=== PATIENT | female | born 1940 | race Hispanic/Latino ===

== ENCOUNTER 2016-08-20 11:05 | Day surgery (SDC) | payer MEDICARE ==
[2016-08-07 11:52] VITALS: BMI 26.5
--- NOTE | 2016-08-20 12:11 | CP.SDSHP ---
Same Day Surgery H & P - History Proposed Procedure: Left foot 2nd and 3rd digit hammertoe repair with right hallux nail avulsion Pre-Op Diagnosis: Left foot hammertoe deformity with plantarflexed 2nd metatarsal head and right hallux ingrown toenail. - Previous Medical/Surgical History Cardiac: Hypertension Endocrine/Metabolic: Thyroid Disease (Hypothyroid), Obesity, Other ( Hyperlipedemia ) Pain: 4.Moderate Pain - Allergies Allergies: Allergies prednisolone Allergy (Verified 08/20/16 11:43) PALPITATIONS - Current Medications Current Medications: See Medical reconciliation - Physical Exam Vital Signs: Vital Signs 08/20/16 11:58 Temperature 98.2 F Pulse Rate 70 Respiratory 18 Rate Blood Pressure 139/72 O2 Sat by Pulse 95 Oximetry Mental Status: Alert & Oriented x3 Neuro: WNL Heart: WNL Lungs: WNL GI: WNL - {Optional Preform as Required} Integument: WNL Ortho: Other (Left 2nd and 3rd digit semi-reducible hammertoe PIPJ contractures , and plantar 2nd metatarsal prominence with callous formation. Right tender medial hallux border tender incurvating nail plate.) - Impression Impression: Pt was seen and examined in SDS. Pt NPO status was confirmed. All Pre-op testing and clearance was in the chart. Pt has exhausted all conservative treatment at this time and is opting for surgical intervention. Pt was explained procedure and post-operative course. All pt's questions were answered to satisfaction. No guarantees were made. Pt understands all risks, benefits and complications of procedure. Pt will follow-up with Dr. Mcneil Pt. Evaluated Today:Candidate for Anesthesia & Procedure: Yes - Date & Time Date: 08/20/16 Time: 12:12 Short Stay Discharge - Short Stay Discharge Admitting Diagnosis/Reason for Visit: M20.42 L60.0 M77.42 Referrals: Julius Mcneil DPM [Primary Care Provider] - Follow-up: Follow-up in 1 week. Instructions: RICE Therapy (GEN) Additional Instructions (Diet, Activity): --Patient in good/stable condition for discharge home. Pt to resume medications per medical reconciliation. Resume regular diet. Please keep dressing clean, dry, & intact to surgical site, use plastic bag over bandage for showering, wear post op shoe at all times when ambulating, call clinic if you see signs of infection (redness, swelling, malodor), please make an appointment to see Dr. Mcneil in office within 1 week for post-op check. Progress Note/Discharge Note with Instructions: - Patient evaluated bedside in recovery s/p surgical procedure. - After surgical procedure patient in NAD - (+) Void, (+) Appetite - Capillary refill time <3s and NVSI intact. - Patient denies complaints at this time - Post operative instructions and plan of care explained to patient at length. - Pt. acknowledges understanding. - Patient stable for DC per podiatric surgery
--- NOTE | 2016-08-20 12:16 | CP.PCM.PN ---
Subjective - Date & Time of Evaluation Date of Evaluation: 08/20/16 Time of Evaluation: 12:13 - Subjective Subjective: 76 female patient was seen at bedside for left painful hammertoe deformity and right painful ingrown toenails. Pt has been NPO since yesterday evening at 10pm. Pr denies recent f.c.n.v.c.sob. Objective - Vital Signs/Intake and Output Vital Signs (last 24 hours): Temp Pulse Resp BP Pulse Ox 98.2 F 70 18 139/72 95 08/20/16 11:58 08/20/16 11:58 08/20/16 11:58 08/20/16 11:58 08/20/16 11:58 - Constitutional Appears: Well, Non-toxic, No Acute Distress - Extremities Exam Additional comments: Lower extremity focused. Neuro-vascular status intact bilaterally. Pedal pulses fully palpable b Left 2nd and 3rd digit partially reducible hammertoe PIPJ contractures, and plantar 2nd metatarsal prominence with callous formation. Right hallux lateral border tender incurvation nail plate - Neurological Exam Neurological Exam: Alert, Awake, Oriented x3 - Psychiatric Exam Psychiatric exam: Normal Affect, Normal Mood - Skin Skin Exam: Intact, Normal Color, Warm Assessment and Plan - Assessment and Plan (Free Text) Assessment: 76 year old with left 2nd digit plantar plate rupture, 2nd and 3rd digit PIPJ hammertoe contracture, and right hallux onychocryptosis. Plan: Pt was seen and examined in SDS Pt NPO status was confirmed All Pre-op testing and clearance was in the chart Pt has exhausted all conservative treatment at this time and is opting for surgical intervention Pt was explained procedure and post-operative course All pt's questions were answered to satisfaction No guarantees were made Pt understands all risks, benefits and complications of procedure Pt will follow-up with Dr. Mcneil
[2016-08-20] MEDS ORDERED: ceFAZolin 1 GM in Sodium Chloride 0.9% 100 ML IVPB ONE (12:19)
[2016-08-20] MEDS ORDERED: Propofol 10 mg/ml Inj (20 ML) ONE ×2 (13:10→13:28)
[2016-08-20] MEDS ORDERED: Midazolam 2 MG/2 ML VIAL ONE (13:10)
[2016-08-20] MEDS ORDERED: Bupivacaine 0.5% Inj(30mL) IJ ONE (13:44)
[2016-08-20] MEDS ORDERED: Bupivacaine 0.5% Inj(30mL) ONE (14:32)
[2016-08-20] MEDS ORDERED: Lactated Ringer's 1,000 ML IV ONE (14:51)
[2016-08-20] MEDS ORDERED: Oxycodone/Acetaminophen 5/325 mg Tab PO PRN ×2 (14:53)
[2016-08-20] MEDS ORDERED: HYDROmorphone 0.5 mg/0.5 ml ISec IVP PRN (14:56)
--- NOTE | 2016-08-20 14:59 | PCM.SURG1 ---
Surgeon's Initial Post Op Note - Surgeon's Notes Surgeon: Dr. Mcneil Dehydrogenation Converter Operator: Dr. Ocampo PGY-1 Type of Anesthesia: IV Sedation, Local Anesthesia Administered By: Dr. Munson Pre-Operative Diagnosis: left foot painful hammertoe two, three with chronic pain submetatarsal 2, chronic ingrown toenail right great toe medial border Operative Findings: see operative report Post-Operative Diagnosis: same Operation Performed: left foot surgical intervention of hammertoes two and three with cutting and removal of soft tissue and bone including second metatarsal head resection and third metararsal extensor tendon tenotomy. right foot permanent ingrown nail removal medial hallux nail border Specimen/Specimens Removed: none Estimated Blood Loss: EBL {In ML}: 10 Blood Products Given: N/A Drains Used: No Drains Post-Op Condition: Good Date of Surgery/Procedure: 08/20/16 Time of Surgery/Procedure: 13:15
[2016-08-20 16:15] VITALS: RESP 18
[2016-08-20 17:09] VITALS: O2SAT 97
[2016-08-20 18:16] VITALS: BP 128/65; PULSE 79; TEMP 97.8
--- NOTE | 2016-08-20 18:21 | OP ---
PROCEDURE DATE: 08/20/2016 SURGEON: Dr. Mcneil. FARO DEALER: Dr. Ocampo, PGY-1. METALLURGIST PROCESS: Dr. Munson. ANESTHESIA: IV sedation plus local. PREOPERATIVE DIAGNOSES: Left foot painful hammertoe deformities of digits 2 and 3 with chronic pain submetatarsal 2; chronic ingrown toenail, right hallux medial border. POSTOPERATIVE DIAGNOSES: Left foot painful hammertoe deformities of digits 2 and 3 with chronic pain submetatarsal 2; chronic ingrown toenail, right hallux medial border. PROCEDURES PERFORMED: Left foot second proximal interphalangeal joint arthroplasty with second metatarsal head resection, left foot third digit proximal interphalangeal joint arthroplasty with percutaneous extensor tendon tenotomy, right foot permanent removal of ingrown nail medial hallux nail border. INDICATIONS: The patient is a 76-year-old female with the above diagnosis. The patient has exhausted all conservative treatment at this time and is now requesting surgical intervention. The patient signed the consent after careful explanation of risks, benefits, complications and alternatives for surgical procedures. No guarantees were given nor implied. 1 gram of Ancef IV was given to the patient prior to the procedure. NPO status was confirmed prior to taking the patient to the operating room. PREPARATION: The patient was brought to the operating room and placed on the operating room table in the supine position. A well-padded pneumatic ankle tourniquet was then applied to the left ankle. After induction of IV sedation, the patient received a total of 20 cc consisting of 0.5% Marcaine plain in local block fashion to the feet (9 mL to the right foot, 11 mL filled to the left foot). Once local anesthesia was achieved, a freer elevator was used to free the medial and proximal nail border of the right hallux. Next, using a bone cutter and hemostat, the medial aspect of the hallux nail was removed from its entirety and passed from the operative field. Next, the left and right foot were then prepped and draped in usual sterile manner. The ankle tourniquet was then inflated to 250 mmHg. Esmarch utilized to exsanguinate the left foot and the procedure began. PROCEDURE: Attention was then directed to the left second digit where a 4 cm curvilinear incision was made extending proximally to the dorsum of the second metatarsophalangeal joint. Sharp dissection was carried down to the deep tissues being careful to identify and retract all vital neurovascular structures. All bleeders were ligated and cauterized as needed. At this time, a transverse tenotomy and capsulotomy was performed to the proximal interphalangeal joint and the head of the proximal phalanx was then freed of its capsular and ligamentous attachments. Next, utilizing an oscillating bone saw, the head of the proximal phalanx was resected and passed from the operative site via the original incision. Attention was then directed to the second metatarsophalangeal joint. Using sharp and blunt dissection, the head of the second metatarsal was freed of its capsular and ligamentous attachments. Next, a capsulotomy was performed at the level of the second metatarsophalangeal joint. Next, using a sagittal saw, a through and through cut was made of the second metatarsal head and the bone fragment was then passed from the operative field. Next, a 0.062 K-wire was driven from the base of the middle phalanx exiting the distal aspect of the second digit. The K- wire was then retrograded proximally into the remaining aspect of the proximal phalanx through the metatarsal head. Placement of the K-wire was then confirmed with intraoperative x-ray. Correction of the deformity was assessed at this time and noted to be excellent. Attention was then directed to the left third digit where a 2 cm curvilinear incision was made over the third proximal interphalangeal joint. Sharp dissection was then carried down to the deep tissues being careful to identify and retract all vital neurovascular structures. All bleeders were ligated and cauterized as needed. At this time, a transverse tenotomy and capsulotomy were performed to the proximal interphalangeal joint and the head of the proximal phalanx was then freed of its capsular and ligamentous attachments. Next, utilizing the oscillating bone saw, the head of the proximal phalanx was then resected and passed from the operative site. Next, a 0.045 K-wire, was driven from the base of the middle phalanx exiting the distal aspect of the third digit. The K-wire was then retrograded proximally into the remaining aspect of the proximal phalanx. Placement of the wire was then confirmed with intraoperative x-ray. At this time, a #15 blade was utilized to make a percutaneous tenotomy of the third metatarsophalangeal joint extensor tendon. Correction of the deformity was assessed at this time and noted to be excellent. The surgical wounds were then flushed with copious amounts of sterile normal saline. The tendons of digits 2 and 3 were then reapproximated and sutured with 3-0 Vicryl. The subcutaneous tissue was then reapproximated with 3-0 Vicryl. The skin edges were then reapproximated with #3-0 Prolene in alternating simple and horizontal mattress technique. #3-0 Prolene was also used to reapproximate the percutaneous tenotomy site. Attention was then directed back to the medial aspect of the right hallux nail border. A [place] tourniquet was utilized to exsanguinate the hallux. At this time, using a fresh #15 blade, a semi-elliptical incision was made deep to the level of bone. The skin and nail matrix from this incision were then passed from the operative field. The incision site was then flushed copiously with sterile normal saline. Using #3-0 Prolene suture, the skin edges were then reapproximated to the remaining medial aspect of the hallux nail using simple suture technique. At this time, the [place] tourniquet was removed and an additional 5 cc of 0.5% Marcaine plain was injected proximally to the hallux in local block fashion. The incision sites were then cleansed with normal saline. Betadine-soaked Adaptic was then applied to all incision sites of both feet; 4 x 4 gauze, Kerlix, Lenny bandage were then used to dress each foot. It should be noted that Dr. Mcneil was present for the entire case. POSTOPERATIVE CONDITION: The patient tolerated the anesthesia and procedure well and was escorted to the recovery room with vital signs stable and neurovascular status intact to the right and left foot. This patient will follow up with Dr. Mcneil at the office within 1 week for postoperative care. KAYE CONTRERASM Julius Mcneil DPM cc: [id number] TT: 08/20/2016 18:20:36 mn MTDMainor
== END 2016-08-20 19:09 | disposition home or self-care (01) ==
LOC: H.OPSURG 11:05
PROVIDERS: ATTEND Podiatrist Foot & Ankle Surgery
DX: M20.42 Other hammer toe(s) (acquired), left foot (principal); L60.0 Ingrowing nail; M77.42 Metatarsalgia, left foot; E78.5 Hyperlipidemia, unspecified; E03.9 Hypothyroidism, unspecified; I10 Essential (primary) hypertension; F32.9 Major depressive disorder, single episode, unspecified; M19.90 Unspecified osteoarthritis, unspecified site
CPT/HCPCS: 11730; 28285; 97161; G8978; G8979; G8980; J0690; J2001; J2250; J2704; J3010; J7030; J7120